=== PATIENT | male | born 1975 | race Caucasian/White ===

== ENCOUNTER 2021-03-08 20:58 | Emergency (ER) | payer OTHER ==
[~2021-03-08 20:58] MED LIST: CARAFATE1 GM PO; DEXILANT30 MG PO; HUMALOG 75100 UNIT/M SC; HUMULIN R100 UNIT/1 SC; LEVEMIR100 UNIT/1 SC; PERCOCET 5-3251 EACH PO; PRILOSEC20 MG PO; PROTONIX 40MG T40 MG PO
[2021-03-08] MEDS ORDERED: NORCO 5-325 TA1 EACH PO (22:00)
== END 2021-03-08 22:35 | disposition home or self-care (01) ==
LOC: FER 20:58
DX: S89.92XA Unspecified injury of left lower leg, initial encounter (principal); E10.9 Type 1 diabetes mellitus without complications; X50.1XXA Overexertion from prolonged static or awkward postures, initial encounter; Y92.009 Unspecified place in unspecified non-institutional (private) residence as the place of occurrence of the external cause
CPT/HCPCS: 73564